=== PATIENT | male | born 1990 | race Caucasian/White ===

== ENCOUNTER 2018-05-17 20:17 | Emergency (ER) | payer BC ==
[2018-05-17 20:22] VITALS: TEMP 98.4
[2018-05-17] MEDS ORDERED: ACETAMINOPHEN TAB 500 MG TAB PO STA (21:24)
[2018-05-17] MEDS ORDERED: IBUPROFEN 800 MG TAB PO STA (21:24)
--- NOTE | 2018-05-17 21:34 | ED ---
General Adult HPI - General Chief complaint: Chest Pain Stated complaint: chest & arm pain Time Seen by Provider: 05/17/18 21:25 Source: patient, RN notes reviewed, old records reviewed Mode of arrival: ambulatory Limitations: no limitations - History of Present Illness Initial comments: This is a 28-year-old male the ER for evaluation of chest pain shoulder pain. Patient has no significant medical history does not smoke. Mild history of anxiety, no recent travel history no known sick contacts no swollen legs no fevers no cough or congestion or shortness of breath. Pain is worse with movement and with sitting straight, no significant improvement factors for pain. Patient states he was doing and moving some heavy objects last night with the pain did not start this morning. - Related Data Home Medications Medication Instructions Recorded Confirmed Sertraline [Zoloft] 50 mg PO DAILY 05/17/18 05/17/18 Allergies Allergy/AdvReac Type Severity Reaction Status Date / Time amoxicillin Allergy Rash/Hives Verified 05/17/18 21:26 blueberry Allergy Unknown Verified 05/17/18 21:26 Review of Systems ROS Statement: Those systems with pertinent positive or pertinent negative responses have been documented in the HPI. ROS Other: All systems not noted in ROS Statement are negative. Past Medical History Past Medical History: No Reported History History of Any Multi-Drug Resistant Organisms: None Reported Past Surgical History: No Surgical Hx Reported Past Psychological History: Anxiety Smoking Status: Never smoker Past Alcohol Use History: Daily Past Drug Use History: None Reported General Exam - General Exam Comments Initial Comments: A she does have left-sided chest wall tenderness to touch Limitations: no limitations General appearance: alert, in no apparent distress Head exam: Present: atraumatic, normocephalic, normal inspection Eye exam: Present: normal appearance, PERRL, EOMI. Absent: scleral icterus, conjunctival injection, periorbital swelling ENT exam: Present: normal exam, mucous membranes moist Neck exam: Present: normal inspection. Absent: tenderness, meningismus, lymphadenopathy Respiratory exam: Present: normal lung sounds bilaterally. Absent: respiratory distress, wheezes, rales, rhonchi, stridor Cardiovascular Exam: Present: regular rate, normal rhythm, normal heart sounds. Absent: systolic murmur, diastolic murmur, rubs, gallop, clicks GI/Abdominal exam: Present: soft, normal bowel sounds. Absent: distended, tenderness, guarding, rebound, rigid Extremities exam: Present: normal inspection, full ROM, normal capillary refill. Absent: tenderness, pedal edema, joint swelling, calf tenderness Back exam: Present: normal inspection Neurological exam: Present: alert, oriented X3, CN II-XII intact Psychiatric exam: Present: normal affect, normal mood Skin exam: Present: warm, dry, intact, normal color. Absent: rash Course Vital Signs 05/17/18 20:18 Temperature 98.4 F Pulse Rate 127 H Respiratory 20 Rate Blood Pressure 129/90 O2 Sat by Pulse 98 Oximetry - Reevaluation(s) Reevaluation #1: 05/17/18 21:56 Patient states pain is improved pain is improved with Motrin Tylenol Medical Decision Making - Medical Decision Making 28 male the ER for evaluation of left-sided chest pain, patient was moving objects last night felt no pain but had pain throughout the day today. Patient does have tenderness to left anterior chest wall. X-ray negative EKG negative patient can be discharged home - Radiology Data Radiology results: report reviewed (Chest x-rays negative for acute disease), image reviewed Disposition Clinical Impression: Chest pain, Atypical chest pain Disposition: HOME SELF-CARE Instructions: Costochondritis (ED) Is patient prescribed a controlled substance at d/c from ED?: No Referrals: Rosalia Dumas III, MD [Primary Care Provider] - 1-2 days
--- NOTE | 2018-05-17 21:49 | XR ---
EXAMINATION: XR chest 2V DATE AND TIME: 05/17/2018 9:32 PM ORDERING PROVIDER: Golden Peralta DO CLINICAL INDICATION: Pain TECHNIQUE: PA and lateral COMPARISON: None. DESCRIPTION: The lungs are clear. The pleural spaces are negative. The cardiac silhouette is not enlarged. The mediastinal and pleural silhouettes are unremarkable. The skeletal structures are intact without focal findings. The soft tissues are unremarkable. IMPRESSION: NO ACUTE PROCESS.
[2018-05-17 22:11] VITALS: BP 165/81; PULSE 99; RESP 16
== END 2018-05-17 22:11 | disposition home or self-care (01) ==
LOC: EC 20:17
DX: R07.89 Other chest pain (principal); M25.519 Pain in unspecified shoulder; F41.9 Anxiety disorder, unspecified; Z79.899 Other long term (current) drug therapy; Z88.0 Allergy status to penicillin; Z91.018 Allergy to other foods; X50.0XXA Overexertion from strenuous movement or load, initial encounter
CPT/HCPCS: 71046; 93005; 99285